=== PATIENT | male | born 1970 | race Caucasian/White ===

== ENCOUNTER 2017-08-16 19:41 | Emergency (ER) | payer MEDICAID ==
[~2017-08-16] VITALS: Ht 160 cm; Wt 64.0 kg
[2017-08-16] MEDS ORDERED: KETOROLAC 30MG/ML VIAL IM ONE (22:00)
[2017-08-17 00:30] VITALS: BP 105/62
== END 2017-08-17 00:30 | disposition home or self-care (01) ==
LOC: ER 20:26
DX: R07.0 Pain in throat (principal); F17.210 Nicotine dependence, cigarettes, uncomplicated
CPT/HCPCS: 70360; 96372; 99284; J1885